=== PATIENT | female | born 1990 | race Caucasian/White ===

== ENCOUNTER 2017-04-07 05:33 | Inpatient (IN) | payer OTHER ==
[~2017-04-07] VITALS: Ht 165.1 cm; Wt 141.5 kg
[2017-04-08 02:49] LABS: HEMOGLOBIN 9.9 gm/dl (12.3-15.3)
[2017-04-09] MEDS ORDERED: COLACE 100MG C100 MG PO (13:48)
== END 2017-04-09 16:24 | disposition home or self-care (01) | DRG 766 ==
LOC: OB 05:33
PROVIDERS: Obstetrics & Gynecology; ADMIT Obstetrics & Gynecology
PROC: 10D00Z1 Extraction of Products of Conception, Low, Open Approach (ICD-10-PCS; principal; 2017-04-07 07:30)
DX: O34.211 Maternal care for low transverse scar from previous cesarean delivery (principal); Z3A.39 39 weeks gestation of pregnancy; Z37.0 Single live birth; O99.214 Obesity complicating childbirth; O99.334 Smoking (tobacco) complicating childbirth; F17.210 Nicotine dependence, cigarettes, uncomplicated
CPT/HCPCS: 36415; 81001; 82800; 85014; 85018; 85025; 90715; C9113; J0690; J1650; J2274; J2405; J2590; J2765; J3010; J7120